=== PATIENT | male | born 1970 | race Caucasian/White ===

== ENCOUNTER 2019-01-21 10:07 | Emergency (ER) | payer MEDICAID, OTHER ==
[~2019-01-21] VITALS: Ht 167.6 cm; Wt 85.5 kg
[2019-01-21 10:10] VITALS: BP 133/71; PULSE 77; RESP 18; Ht 167.6 cm; Wt 85.5 kg
[2019-01-21] MEDS ORDERED: HC30CR25 TOP (10:58)
[2019-01-21] MEDS ORDERED: BEN25 PO (10:58)
[2019-01-21] MEDS ORDERED: PRED20TA PO (10:58)
[2019-01-21] MEDS ORDERED: DEXAMETHASONE 10 MG/ML 1 ML INJ IM ONE (11:00)
[2019-01-21] MEDS ORDERED: DIPHENHYDRAMINE 25 MG CAP PO ONE (11:00)
--- NOTE | 2019-01-21 14:00 | ERD ---
ER Documentation Chief Complaint Chief Complaint rash on body x 1 week allergy to tree/plant HPI 48 yr old male complaining rash x1 week. Patient states that he was doing yard work and started having an allergic reaction to something he touched in the ER. He states the rash was on his extremities and abdomen is very itchy. He denies other medical problems. NKDA. Surgical history denies. Social history denies ROS All systems reviewed and are negative except as per history of present illness. Medications Home Meds Active Scripts Hydrocortisone* Topical (Hydrocortisone* Topical) 2.5%-28.3 Gm Cream..g., 1 APPLIC TOP BID, #1 TUB Prov:CHARU BATISTA PA-C 01/21/19 Diphenhydramine Hcl* (Benadryl*) 25 Mg Cap, 25 MG PO Q6, #30 CAP Prov:CHARU BATISTA PA-C 01/21/19 Prednisone* (Prednisone*) 20 Mg Tab, 40 MG PO DAILY for 4 Days, TAB Prov:CHARU BATISTA PA-C 01/21/19 Allergies Allergies: Coded Allergies: No Known Allergies (Verified Allergy, Mild, 07/12/12) PMhx/Soc Medical and Surgical Hx: pt denies Medical Hx History of Surgery: Yes (NOSE) Anesthesia Reaction: No Hx Neurological Disorder: No Hx Respiratory Disorders: No Hx Cardiac Disorders: No Hx Psychiatric Problems: No Hx Miscellaneous Medical Probl: No Hx Alcohol Use: Yes (social) Hx Substance Use: No Hx Tobacco Use: No Smoking Status: Never smoker FmHx Family History: No diabetes, No coronary disease, No other Physical Exam Vitals Vital Signs Date Temp Pulse Resp B/P (MAP) Pulse Ox O2 O2 Flow FiO2 Time Delivery Rate 01/21/19 98.1 77 18 133/71 97 10:10 (91) Physical Exam GENERAL: The patient is well-appearing, well-nourished, in no acute distress HEENT: Atraumatic. Conjunctivae are pink. Pupils equal, round, and reactive to light. There is no scleral icterus. Tympanic membranes clear bilaterally. Oropharynx clear. CHEST: Clear to auscultation bilaterally. There are no rales, wheezes or rhonchi. HEART: Regular rate and rhythm. No murmurs, clicks, rubs or gallops. SKIN: Erythematous patch noted to extremities. No pustules or vesicles. Results 24 hrs Current Medications Medications Dose Sig/Carlos Manuel Start Time Status Last (Trade) Ordered Route PRN Stop Time Admin Dose Reason Admin 10 mg ONCE ONCE 01/21/19 DC 01/21/19 Dexamethasone IM 11:00 11:02 (Decadron) 01/21/19 11:01 25 mg ONCE ONCE 01/21/19 DC 01/21/19 Diphenhydrami PO 11:00 11:02 ne HCl 01/21/19 11:01 (Benadryl) Procedures/MDM ER course: Decadron and Benadryl given ED. MDM: 48-year-old male presents with rash. Patient likely is contact dermatitis. Patient will be treated with supportive medications. He is told to avoid continued itching to the area. Patient is told symptoms change or worsen to return immediately to the ER. All questions answered at discharge Departure Diagnosis: Primary Impression: Contact dermatitis Condition: Stable Patient Instructions: Contact Dermatitis Referrals: [facility] YOU HAVE RECEIVED A MEDICAL SCREENING EXAM AND THE RESULTS INDICATE THAT YOU DO NOT HAVE A CONDITION THAT REQUIRES URGENT TREATMENT IN THE EMERGENCY DEPARTMENT. FURTHER EVALUATION AND TREATMENT OF YOUR CONDITION CAN WAIT UNTIL YOU ARE SEEN IN YOUR DOCTORS OFFICE WITHIN THE NEXT 1-2 DAYS. IT IS YOUR RESPONSIBILITY TO MAKE AN APPOINTMENT FOR FOLOW-UP CARE. IF YOU HAVE A PRIMARY DOCTOR --you should call your primary doctor and schedule an appointment IF YOU DO NOT HAVE A PRIMARY DOCTOR YOU CAN CALL OUR PHYSICIAN REFERRAL HOTLINE AT IF YOU CAN NOT AFFORD TO SEE A PHYSICIAN YOU CAN CHOSE FROM THE FOLLOWING [facility] [address] [facility] [address] [facility] [facility] [address] [facility] [address] [facility] [address] [facility]. [facility]. [address] Additional Instructions: FOLLOW UP WITH YOUR PRIMARY CARE PHYSICIAN TOMORROW.Return to this facility if you are not improving as expected. CHARU BATISTA PA-C Jan 21, 2019 13:59
== END 2019-01-21 11:36 | disposition home or self-care (01) ==
LOC: FTE 10:07
DX: L25.9 Unspecified contact dermatitis, unspecified cause (principal)
CPT/HCPCS: 96372; J1100; Z7502; Z7610